=== PATIENT | male | born 1950 | race Caucasian/White ===

== ENCOUNTER 2016-08-01 14:35 | Emergency (ER) | payer OTHER, MEDICAID ==
[~2016-08-01] VITALS: Ht 180.3 cm; Wt 75.0 kg
[~2016-08-01 14:35] MED LIST: HYDR-519 PO
[2016-08-01 14:51] VITALS: BP 126/80
== END 2016-08-01 16:06 | disposition home or self-care (01) ==
LOC: ER 15:17
DX: S33.9XXA Sprain of unspecified parts of lumbar spine and pelvis, initial encounter (principal); Z88.6 Allergy status to analgesic agent; Z79.899 Other long term (current) drug therapy; Y93.89 Activity, other specified; W10.9XXA Fall (on) (from) unspecified stairs and steps, initial encounter; Y99.9 Unspecified external cause status; Y92.89 Other specified places as the place of occurrence of the external cause
CPT/HCPCS: 99283

== ENCOUNTER 2016-11-02 16:32 | Emergency (ER) | payer MEDICAID, OTHER ==
[~2016-11-02] VITALS: Ht 182.9 cm; Wt 75.0 kg
[2016-11-02] MEDS ORDERED: TRAMADOL 50MG TABLET PO ONE (19:15)
[2016-11-02 19:39] VITALS: BP 114/81
== END 2016-11-02 20:19 | disposition home or self-care (01) ==
LOC: ER 16:32
DX: M54.2 Cervicalgia (principal); M54.89 Other dorsalgia; G89.29 Other chronic pain; Z91.81 History of falling; Z88.6 Allergy status to analgesic agent; Z88.8 Allergy status to other drugs, medicaments and biological substances
CPT/HCPCS: 99283

== ENCOUNTER 2017-01-18 14:05 | Emergency (ER) | payer OTHER ==
[~2017-01-18] VITALS: Ht 180.3 cm; Wt 75.0 kg
[2017-01-18 16:00] VITALS: BP 117/84
== END 2017-01-18 16:45 | disposition home or self-care (01) ==
LOC: ER 14:35
DX: F41.9 Anxiety disorder, unspecified (principal); Z76.0 Encounter for issue of repeat prescription; R03.0 Elevated blood-pressure reading, without diagnosis of hypertension; G89.29 Other chronic pain; M54.9 Dorsalgia, unspecified; M54.2 Cervicalgia
CPT/HCPCS: 99283

== ENCOUNTER 2017-05-03 16:13 | Emergency (ER) | payer OTHER ==
[~2017-05-03] VITALS: Ht 177.8 cm; Wt 76.0 kg
[2017-05-04] MEDS ORDERED: ACETAMINOPHEN 325MG TABLET PO NR (00:15)
[2017-05-04 00:45] VITALS: BP 114/70
== END 2017-05-04 00:50 | disposition home or self-care (01) ==
LOC: ER 16:28
DX: S06.0X0A Concussion without loss of consciousness, initial encounter (principal); Z88.6 Allergy status to analgesic agent; Y08.89XA Assault by other specified means, initial encounter; Y93.89 Activity, other specified; Y92.512 Supermarket, store or market as the place of occurrence of the external cause; Y99.8 Other external cause status
CPT/HCPCS: 70450; 99284

== ENCOUNTER 2017-05-04 14:17 | Emergency (ER) | payer OTHER ==
[~2017-05-04] VITALS: Ht 167.6 cm; Wt 80.0 kg
[2017-05-04 15:01] VITALS: BP 112/77
[2017-05-04] MEDS ORDERED: ACETAMINOPHEN 325MG TABLET PO ONE (18:15)
== END 2017-05-04 18:27 | disposition home or self-care (01) ==
LOC: ER 15:43
DX: R51 Headache (principal); Z87.828 Personal history of other (healed) physical injury and trauma; Z88.6 Allergy status to analgesic agent
CPT/HCPCS: 99282

== ENCOUNTER 2017-05-05 00:37 | Emergency (ER) | payer OTHER ==
[~2017-05-05] VITALS: Ht 180.3 cm; Wt 77.0 kg
[2017-05-05 01:01] VITALS: BP 118/72
== END 2017-05-05 02:08 | disposition home or self-care (01) ==
LOC: ER 00:37
DX: Z76.0 Encounter for issue of repeat prescription (principal); J45.909 Unspecified asthma, uncomplicated; F17.210 Nicotine dependence, cigarettes, uncomplicated; Z88.6 Allergy status to analgesic agent; Z88.8 Allergy status to other drugs, medicaments and biological substances; F10.21 Alcohol dependence, in remission
CPT/HCPCS: 99283

== ENCOUNTER 2017-05-10 12:31 | Emergency (ER) | payer OTHER ==
[~2017-05-10] VITALS: Ht 180.3 cm; Wt 84.0 kg
[2017-05-10 13:36] VITALS: BP 104/68
== END 2017-05-11 01:00 | disposition left against medical advice (07) ==
LOC: ER 14:03
DX: R51 Headache (principal); Z53.21 Procedure and treatment not carried out due to patient leaving prior to being seen by health care provider